=== PATIENT | female | born 1945 | race Caucasian/White ===

== ENCOUNTER 2021-05-19 12:06 | Emergency (ER) | payer MEDICARE, BC, SELFPAY ==
[2021-05-19 12:33] VITALS: BP 190/94; PULSE 64; RESP 16; TEMP 36.3; O2SAT 97; BMI 30.9
--- NOTE | 2021-05-19 12:36 | DI.RAD.S_ITS ---
PROCEDURE: XR LUMBAR SPINE 2-3V INDICATIONS: back pain TECHNIQUE: 3 views of the lumbar spine were acquired. COMPARISON: None. FINDINGS: Bones: 5 [id number] vertebrae are present. Mild L3-L4 and L4-L5 anterolisthesis. Loss of height noted in the L1 vertebral body compatible with compression fracture of indeterminate age. L1 compression fracture results in approximately 30% loss of normal vertebral body height. No suspicious bony lesions. Mild degenerative disc changes noted throughout the lumbar spine. Moderate L3-L4, L4-L5 and L5-S1 facet arthropathy. Soft tissues: Overlying bowel gas pattern is normal. No suspicious soft tissue calcifications. IMPRESSION: L1 compression fracture of indeterminate age. Dictated by: Bharati Valadez MD, PhD on 05/19/2021 at 13:08 Approved by: Bharati Valadez MD, PhD on 05/19/2021 at 13:09
[2021-05-19 15:02] VITALS: PULSE 64; O2SAT 98
[2021-05-19 15:03] VITALS: BP 206/95; PULSE 65; O2SAT 98
[2021-05-19 15:04] VITALS: BP 210/96; PULSE 61; O2SAT 98
--- NOTE | 2021-05-19 15:08 | ED_ITS ---
HPI - Back Pain/Injury <Rd Dorsey PA-C - Last Filed: 05/19/21 15:29> General Chief Complaint: Back Pain/Injury Stated Complaint: Fall, Twisted Back Time Seen by Provider: 05/19/21 15:05 Source: patient Limitations: no limitations History of Present Illness HPI Narrative: Cathy presents with chief complaint of left lower back pain that she sustained earlier this morning. She reports that she was walking on the stairs in the dark and had a misstep on the last stair which caused her to fall onto her left side. She denies any significant difficulty walking, abdominal pain, headache, vision changes, chest pain, shortness of breath, palpitations, numbness or tingling in her legs, changes in bowel or bladder habits or any other acute concerns or complaints. She is going on a boat trip the next few days and wanted to get checked out before she left. She took 500 mg of aspirin which seemed to help her symptoms. She has past medical history of hypertension and has not taken her antihypertensives yet today. Related Data Previous Rx's Medication Instructions Recorded methocarbamol 500 mg tablet 500 mg PO BID PRN #14 tab 05/19/21 Allergies Allergy/AdvReac Type Severity Reaction Status Date / Time No Known Drug Allergies Allergy Verified 05/19/21 12:33 Review of Systems <Rd Dorsey PA-C - Last Filed: 05/19/21 15:29> Review of Systems Narrative: As per HPI Patient History <Rd Dorsey PA-C - Last Filed: 05/19/21 15:29> Social History Smoking Status: Unknown if ever smoked Smoking Status: Unknown if ever smoked alcohol intake frequency: holidays/special occasions only Substance Use Type: does not use Exam <Rd Dorsey PA-C - Last Filed: 05/19/21 15:29> Narrative Exam Narrative: Exam Narrative: Const General: cooperative, healthy appearing, comfortable, no acute distress, well developed and well groomed Nutritional Appearance: average body habitus Orientation: alert and oriented x3 HENMT Head: normal to inspection and atraumatic Ears: hearing grossly normal bilaterally Nose: external nose normal and nares normal Face and sinus: normal facial exam Neck Neck: normal visual inspection and supple Resp Effort & Inspection: normal respiratory effort, able to speak in complete sentences, no audible wheezes, not labored, no nasal flaring and no respiratory distress Musculoskeletal No midline spinal tenderness, mild left-sided paraspinal muscle tenderness in the lower lumbar area. No SI joint tenderness. No overlying skin changes. Neuro General: alert, oriented x3, gait normal, tone normal and moves all extremities, patellar DTRs 1+ bilaterally. No sensory deficits. Cognition: normal cognition Speech: speech normal Gait: normal gait Psych Appearance: grossly normal and well kempt Mental Status: mental status grossly normal Speech and Movement: speech and movement normal Mood: congruent mood Affect: normal affect Initial Vital Signs Initial Vital Signs: Vital Signs Temperature 97.3 F L 05/19/21 12:33 Pulse Rate 64 05/19/21 12:33 Respiratory Rate 16 05/19/21 12:33 Blood Pressure 190/94 H 05/19/21 12:33 Pulse Oximetry 97 05/19/21 12:33 <Rowena Kemp DO - Last Filed: 05/26/21 07:35> Initial Vital Signs Initial Vital Signs: Vital Signs Temperature 97.3 F L 05/19/21 12:33 Pulse Rate 64 05/19/21 12:33 Respiratory Rate 16 05/19/21 12:33 Blood Pressure 190/94 H 05/19/21 12:33 Pulse Oximetry 97 05/19/21 12:33 Course <Rd Dorsey PA-C - Last Filed: 05/19/21 15:29> Orders Ordered: ED Orders 05/19/21 12:36 XR lumbar spine 2-3V Stat Vital Signs Vital signs: Vital Signs - 8 hr 05/19/21 12:33 05/19/21 15:02 05/19/21 15:03 Temperature 97.3 F L Pulse Rate 64 64 65 Respiratory Rate 16 Blood Pressure 190/94 H 206/95 H Pulse Oximetry 97 98 98 05/19/21 15:04 Temperature Pulse Rate 61 Respiratory Rate Blood Pressure 210/96 H Pulse Oximetry 98 <DO Yuridia Hampton Last Filed: 05/26/21 07:35> Orders Ordered: ED Orders 05/19/21 12:36 XR lumbar spine 2-3V Stat Vital Signs Vital signs: Vital Signs - 8 hr 05/19/21 12:33 05/19/21 15:02 05/19/21 15:03 Temperature 97.3 F L Pulse Rate 64 64 65 Respiratory Rate 16 Blood Pressure 190/94 H 206/95 H Pulse Oximetry 97 98 98 05/19/21 15:04 Temperature Pulse Rate 61 Respiratory Rate Blood Pressure 210/96 H Pulse Oximetry 98 [facility] - Back Pain/Injury <Rd Dorsey PA-C - Last Filed: 05/19/21 15:29> [facility] Narrative Medical decision making narrative: Differential diagnosis includes spinal injury, Cauda Equina, acute fracture. She denies any signficant previous injuries to her back and xray shows an L1 compression fracture. She does not have any pain to palpation in this area and she locates the pain much more laterally than this. It is possible that this is a new fracture. However, is unknown at this time. We will treat her symptoms like a regular low back strain with muscle relaxers, warm compresses, light range of motion with strict return precautions if symptoms fail to improve. Patient verbalizes understanding and agrees to plan and has no further concerns at this time. Thank you A [id number] system was used with the dictation of this note. Please disregard any spelling or grammatical errors. Discharge Plan Departure Patient Disposition: Home Clinical Impression: Strain of lumbar region Qualifiers: Encounter type: initial encounter Qualified Code(s): S39.012A - Strain of muscle, fascia and tendon of lower back, initial encounter Closed compression fracture of L1 vertebra Qualifiers: Encounter type: initial encounter Qualified Code(s): S32.010A - Wedge compression fracture of first lumbar vertebra, initial encounter for closed fracture Activity Restrictions/Additional Instructions: It was very nice to meet you this afternoon. Please use the medication to help with symptoms. When you get back home, please follow-up with your primary care provider. Do not have any pain in the L1 area but on x-ray a small compression fracture was noted. If you developed pain in this area please return for re- evaluation. ER return precautions include changes in bowel or bladder habits, numbness or tingling of the legs, fever, acutely worsening pain or any other acute concerns or complaints. Thank you Rd Dorsey PAC Prescriptions: New methocarbamol 500 mg tablet 500 mg PO BID PRN (Reason: muscle pain) Qty: 14 RF: 0 <Rowena Kemp DO - Last Filed: 05/26/21 07:35> Cosign ED Attending Cosignature Attestation: I was immediately available in the department for consultation. Documentation has been reviewed.
== END 2021-05-19 15:42 | disposition home or self-care (01) ==
PROVIDERS: Emergency Provider Physician Assistant
DX: S39.012A Strain of muscle, fascia and tendon of lower back, initial encounter (principal); S32.010A Wedge compression fracture of first lumbar vertebra, initial encounter for closed fracture; W10.9XXA Fall (on) (from) unspecified stairs and steps, initial encounter
CPT/HCPCS: 72100; 99281; 99283